=== PATIENT | female | born 1955 | race Caucasian/White ===

== ENCOUNTER → 2022-09-29 | Outpatient (CLI) | payer OTHER, SELFPAY ==
[2022-09-29 16:53] LABS: International Normalized Ratio 1.2; Prothrombin Time (Protime)PT. 15.2 SECONDS (11.7-14.9)
[2022-09-29 16:54] LABS: Absolute Lymphocyte Count 1.15 X10^3/uL (0.83-4.51); Absolute Neutrophil Count 2.7 X10^3/uL (2.0-7.7); Basophil# 0.05 X10^3/uL; Basophil% 1.1 % (0-1); Eosinophil# 0.12 X10^3/uL; Eosinophils% 2.6 % (0-5); Erythrocyte Sedimentation Rate 19 mm/hr (0-30); Hematocrit 40.2 % (37-47); Hemoglobin 13.1 g/dL (12.0-15.0); Lymphocyte # 1.15 X10^3/ul (0.83-4.51); Lymphocyte % 25.4 % (19-41); Mean Corp Hgb Conc 32.6 g/dL (32-36); Mean Corpuscular Hgb 30.8 pg (27.0-32.0); Mean Corpuscular Volume 94.4 fL (81-99); Mean Platelet Vol. 11.7 fl (6.2-12.0); Monocyte# 0.49 X10^3/uL; Monocyte% 10.8 % (0-10); NRBC Flagged by Analyzer 0 % (0-5); Neutrophil # 2.71 X10^3/uL (2.7-7.7); Neutrophil % 59.9 % (47-70); Platelet Count 144 K/mm3 (150-450); RBC Distribution Width CV 13.2 % (11.6-14.6); RBC Distribution Width SD 45.1 fl (35.1-43.9); Red Blood Count 4.26 M/mm3 (4.2-5.4); White Blood Count 4.5 K/mm3 (4.4-11.0)
[2022-09-29 17:32] LABS: ALB/GLOB Ratio 0.8 RATIO (0.9-2.4); AST(SGOT) 37 U/L (15-37); Alanine Aminotransfer ALT/SGPT 15 U/L (13-56); Alkaline Phosphatase 141 U/L (45-117); Anion Gap 6 (5-15); BUN 10 mg/dL (7-18); BUN/Creat Ratio 14.4 RATIO (10-20); CRP 4.42 mg/L (0.0-3.0); Calcium,Total 9.1 mg/dL (8.5-10.1); Chloride 113 mmol/L (98-107); EST Glomerular Filtration Rate 89 mL/min (>60); Est Glom Filt Rate - Afr Amer 108 mL/min (>60); Ferritin 58 ng/mL (8-252); Globulin 3.7 g/dL (2.2-4.2); Glucose 91 mg/dL (74-106); Hemoglobin A1c 4.5 % (3.8-5.6); LDH 246 U/L (84-246); Potassium 3.8 mmol/L (3.5-5.1); Protein, Total 6.7 g/dL (6.4-8.2); Sodium Level 144 mmol/L (136-145)
[2022-09-29 17:51] LABS: HIV - WCH Non-Reactive (Nonreactive)
[2022-10-01 15:08] LABS: Anti-Centromere B Ab >8.0 AI (0.0-0.9); Anti-Chromatin 0.3 AI (0.0-0.9); Anti-Jo <0.2 AI (0.0-0.9); Anti-Scleroderma-70 AB <0.2 AI (0.0-0.9); RNP Ab 0.2 AI (0.0-0.9); SJOGREN'S Anti-SS-A test < 0.2 AI (0.0-0.9); SJOGREN'S Anti-SS-B test < 0.2 AI (0.0-0.9); Smith Ab <0.2 AI (0.0-0.9)
[2022-10-01 16:02] LABS: Anti-Mitochondrial AB 145.2 Units (0.0-20.0); Anti-dsDNA Ab 1 IU/mL (0-9)
[2022-10-04 08:09] LABS: Angiotensin Convert Enzyme 86 U/L (14-82); Cytoplasmic Ab (C-ANCA) <1:20 titer (Neg:<1:20); HEPATITIS B SURFACE AG Negative (Negative); Hep C Antibodies <0.1 s/co ratio (0.0-0.9); Hepatitis A IgM Antibody Negative (Negative); Hepatitis B Core AB IgM Negative (Negative)
[2022-10-04 14:53] LABS: AFP, Tumor Marker 2.3 ng/mL (0.0-9.2); Anti-Smooth Muscle ABS 9 Units (0-19); Copper, Serum or Plasma 121 ug/dL (80-158); Haptoglobin 60 mg/dL (37-355); Perinuclear Ab (P-ANCA) <1:20 titer (Neg:<1:20)
== END | disposition home or self-care (01) ==
LOC: LAB 15:26
PROVIDERS: PCP Family Medicine; Referring Provider Internal Medicine Gastroenterology; Visit Provider Internal Medicine Gastroenterology
DX: K74.3 Primary biliary cirrhosis (principal)
CPT/HCPCS: 36415; 80053; 80074; 82105; 82140; 82164; 82390; 82525; 82728; 83010; 83036; 83516; 83615; 85025; 85610; 85652; 86140; 86225; 86235; 86256; 86703

== ENCOUNTER → 2022-10-15 | Outpatient (CLI) | payer SELFPAY, OTHER ==
--- NOTE | 2022-10-15 09:50 | US_ITS ---
STUDY: ABDOMINAL ULTRASOUND - ELASTOGRAPHY REASON FOR VISIT: Female, 67 years old. Primary biliary cirrhosis. TECHNIQUE: Liver stiffness measurements were obtained on a Mobile Backstage RS 85 ultrasound machine using a CA 1-7 probe following the SRU guidelines. 3 measurements were obtained using a 2-D-SWE method. The IQR/M was 2% suggesting a quality data set. TECHNICAL QUALITY: Adequate. COMPARISON: None. FINDINGS: Liver: There is no demonstrated mass lesion. Median liver stiffness measured 18 kPa. US/Elastography Parenchyma/Organ IMPRESSION: Liver stiffness measures 18 kPa compatible with F3-F4 (Moderate to severe liver fibrosis) Metavir score. Electronically Signed: Eduar Lozada MD at 12:24 EST ,
--- NOTE | 2022-10-15 09:50 | US_ITS ---
STUDY: ABDOMINAL ULTRASOUND - RIGHT UPPER QUADRANT REASON FOR VISIT: Female, 67 years old . History of biliary cirrhosis. History of prior TIPS procedure. TECHNIQUE: Ultrasound evaluation of the right upper quadrant was performed with real-time and static catherine-scale imaging. TECHNICAL QUALITY: Adequate. COMPARISON: None. FINDINGS: Liver: The liver measures 11.7 cm. There is normal echogenicity of the liver. The bile ducts are within normal limits. There is hepatic color flow. The direction of portal flow is hepatopetal. There is no demonstrated mass lesion. Gallbladder: Normal distended gallbladder. The gallbladder wall measures 1.1 mm. There is a negative sonographic Velasquez''s sign. There is no pericholecystic fluid. There are no gallstones. Common Bile Duct (C.B.D.): The common bile duct measures 8.8 mm. Pancreas: There is nonvisualization of the pancreas due to overlying bowel gas. Right Kidney: Normal size of the right kidney. The right kidney measures 10 cm x 5.2 cm x 5 cm. Normal renal cortex. The right cortex measures 1.3 cm. There is no demonstrated renal mass or cyst. Minimal right hydronephrosis. US/Abdomen Limited IMPRESSION: Minimal right hydronephrosis. Electronically Signed: Eduar Lozada MD at 12:22 EST ,
== END | disposition home or self-care (01) ==
LOC: US 09:49
PROVIDERS: PCP Family Medicine; Referring Provider Internal Medicine Gastroenterology; Visit Provider Internal Medicine Gastroenterology
DX: N13.30 Unspecified hydronephrosis (principal); K74.3 Primary biliary cirrhosis
CPT/HCPCS: 76705; 76981

== ENCOUNTER → 2022-10-27 | Outpatient (CLI) | payer OTHER, SELFPAY ==
[2022-10-27] VITALS (10 sets, daily range): BP systolic 110–140; BP diastolic 46–95; PULSE 81–91; RESP 15–29; TEMP 36.4; O2SAT 95–99; BMI 25.8
--- NOTE | 2022-10-27 | LIVB_PTH ---
PATIENT: CARMINE OVERTON LOC: CT U#:[id number] AGE/SX: 67/F ROOM: RE10/27/[address]: Dr. Sánchez Hartman DO : 1955 BED: DIS: 10/27/2022 SPEC #: [id number] RECD: 10/27/22 09:37 STATUS: EMILY REQ #: [id number] ELISEO: 10/27/22 00:[address]: Sánchez Hartman DEPT: SURGICAL PATHOLOGY RECD BY: Kaylin Zafar ENTERED: 10/27/22 11:03 SP TYPE: LIVER BX OTHR DR: DO Dr. Eduar Rice MD Tissues: Liver, NOS Procedures: PAS with Diastase (control) Trichrome (control) Special Stain Group II PAS Stain (control) Surgery Specimen Level V Retic (control) Iron Stain (control) HEADER OPERATION: Liver biopsy PRE-OP DIAGNOSIS: Liver evaluation TISSUE SUBMITTED: Liver 18-gauge x3 MICROSCOPIC DIAGNOSIS Liver, core biopsy: Consistent with primary biliary cirrhosis. See microscopic description and comment. SJ:manny 10/28/2022 COMMENT The findings are suggestive of primary biliary cirrhosis, stage III. Correlation with clinical, radiologic findings, laboratory studies and appropriate follow up are necessary. Case has been reviewed in consultation with Dr. Alcazar who concurs with the above diagnosis. IDC:ROSANA MICROSCOPIC DESCRIPTION Slides are reviewed. The specimen shows liver parenchymal tissue with preserved lobular architecture. Hepatocytes show minimal reactive changes. Minimal lobular inflammation is noted. Portal area shows moderate chronic inflammation predominantly consisting of lymphocytes and lymphoid aggregates with bile duct destruction. Focal interface inflammation is noted. Well-defined granulomas are not seen. Trichrome stain highlights the portal, periportal and focal bridging fibrosis. Definite cirrhosis is not seen. Iron stain shows absent iron. Reticulin stain shows preserved hepatic architecture. PAS and PASD stains do not show any abnormal accumulation of protein. All stains are performed with appropriate matched controls. GROSS DESCRIPTION Received in fixative is one container labeled with the patient's name and designated liver biopsy. The specimen consists of three elongated fragments of islas soft tissue each measuring 2 cm in length and 0.1 cm in diameter. The specimen is totally submitted in one cassette. / TRISH:manny 10/27/2022 TC:5 CPT: 06760, 85858 x5
--- NOTE | 2022-10-27 07:44 | CT_ITS ---
PROCEDURE: CT DIRECTED CORE LIVER BIOPSY INDICATION: Female, 67 years old. Chronic hepatitis C. TIPS procedure. PHYSICIAN: Dr. STEFANI Talbert CONSENT: Written informed consent was obtained having explained the risks, benefits and alternatives in detail with the patient who accepted the risks and agreed to proceed. Laboratory review and clinical assessment was performed. CONSCIOUS SEDATION PROTOCOL: The Drugs used were: 2 mg Versed, IV., and 50 mcg Fentanyl, IV. The sedation time was: 25 minutes. Conscious sedation was started at 9:05 AM and terminated at 9:30 AM. The conscious sedation protocol was independently monitored. RADIATION DOSAGE (If Supplied By Facility): CTDIvol = ( 16 ) mGy, DLP = ( 290.91 ) mGycm Individualized dose optimization techniques were used for this CT. TECHNIQUE: Using CT image guidance with image documentation, a suitable location in the right lobe of the liver was identified. Using an anterior approach, puncture of the liver was uneventful with an 18-gauge core needle system. 3, 18-gauge core samples were obtained, and submitted in formalin to the pathologist for further assessment. Followup CT scan revealed no distinct sequelae. CT/Biopsy/Inj or Needle Placement IMPRESSION: 1. CT directed core needle biopsy of the liver, using CT image guidance with image documentation as described. 2. Conscious Sedation protocol utilized with independent monitoring. Electronically Signed: Eduar Lozada MD at 10:44 EST ,
[2022-10-27 07:54] LABS: Platelet Count 145 K/mm3 (150-450)
[2022-10-27] MEDS: 0.9% Saline Lock 10 ML Syringe IV (08:38)
[2022-10-27 08:41] LABS: International Normalized Ratio 1.3; Prothrombin Time (Protime)PT. 16.2 SECONDS (11.7-14.9)
[2022-10-27] MEDS: Midazolam 2 MG/2 ML Syringe IV (09:05)
[2022-10-27] MEDS: fentaNYL 100 MCG/2 ML Ampul IV (09:05)
[2022-10-27] MEDS: Lidocaine 2% (20 ml mdv) 20 ML Vial (09:25)
== END | disposition home or self-care (01) ==
PROVIDERS: PCP Family Medicine; Referring Provider Internal Medicine Gastroenterology; Visit Provider Internal Medicine Gastroenterology
DX: K74.3 Primary biliary cirrhosis (principal); B19.20 Unspecified viral hepatitis C without hepatic coma
CPT/HCPCS: 47000; 96365; 96375; 36415; 77012; 85049; 85610; 85730; 88307; 88313; 99156; J7050; A4216

== ENCOUNTER 2022-12-01 09:27 | Day surgery (SDC) | payer SELFPAY, OTHER ==
[2022-12-01] MEDS: Lactated Ringers 1,000 ML 15 ML IV (10:01)
[2022-12-01 10:02] VITALS: BP 146/53; PULSE 85; RESP 18; TEMP 36.8; O2SAT 99; BMI 26.9
--- NOTE | 2022-12-01 10:28 | PCM.HP.BLA ---
History and Physical Date of Admission: 12/01/22 67 F who presents to the office today for Initial consult. Chapis established with this clinic 09.29.22 as a self-referral. Previously established with [facility] for hepatic cirrhosis. Approximately 7 years prior she presented to [facility] with generalized weakness and general malaise with subsequent syncopal episode and noted to have of varices and GIB. Transferred to [facility] where TIPs performed emergently. Hepatology Dr. Fish last seen approximately a year prior. Does not recall any HE complications. She has not had a repeat EGD. ROS Const Constitutional: No fatigue, malaise, night sweats, weight change, sleep problems, abnormal sleep pattern or change in appetite ENT ENT: No difficulty swallowing, hoarseness or sore throat Cardio Cardiology: No chest pain at rest Gastro GI: No abdominal pain, belching, bloating, change in bowel habits, change in stool character, coffee ground emesis, constipation, cramping, diarrhea, heartburn, difficulty swallowing, feeling full early, excessive flatus, incontinent of stools, Vomiting blood/hematemesis, Blood in stool, loose stools, Black,tarry stools, nausea/dyspepsia, pain with swallowing, vomiting or other Musc Musculoskeletal: No joint pain Skin Skin: No yellowing of the eye or itchy eyes Neuro Neurology: No behavioral changes Psych Psychiatric: No abnormal sleep pattern, No anxiety, No behavioral changes, No change in appetite and No depression Endo Endocrine: No fatigue or weight change Aller/Imm Allergy/Immunologic: No itchy eyes Joshua/Lymp Hematologic/Lymphatic: No easy bleeding or easy bruising Exam Const General: cooperative and comfortable Nutritional Appearance: average body habitus and well nourished [facility] Head: normal to inspection Ears: hearing grossly normal bilaterally Nose: external nose normal Face and sinus: normal facial exam Mouth: oral mucosae normal Throat: posterior oropharynx normal Eyes General: appearance normal, both eyes and all related structures Neck Neck: normal visual inspection Chest Chest palpation & inspection: normal inspection of the chest and normal palpation of entire chest wall Resp Effort & Inspection: normal respiratory effort Auscultation: Bilateral: Clear to Auscultation Cardio Palpation: normal PMI Rate: regular rate Rhythm: regular rhythm GI Inspection: normal to inspection Auscultation: normal bowel sounds Percussion: normal to percussion Palpation: no hepatosplenomegaly Skin General: no rashes or lesions noted Neuro General: patient alert Extrem General: normal to inspection Psych Affect: normal affect Assessment and Plan Assessment and Plan (1) Primary biliary cirrhosis: ?Status:?Chronic ?Plan: She has a several year history of probable cirrhosis complicated by gastric varices resulting for emergent TIPS procedure.? She is not having signs or symptoms of decompensated cirrhosis at this time.? She will need an upper endoscopy to evaluate for portal gastropathy, portal hypertension, esophageal varices.? I suspect that she did not have these because she underwent a TIPS procedure.? She is therapy at this time for variceal prophylaxis.? She will also get labs drawn for meld testing.? She is not experiencing any jaundice, encephalopathy, ascites.? She does get occasional itching but that is not on a daily basis.? She does not drink any alcohol.? She has no other liver disease except for primary biliary cirrhosis.? She is on ursodiol which we will continue. (2) HCV (hepatitis C virus): ?Status:?Chronic ?Plan: Patient will be checked chronic hepatitis C indicated on her previous documentation previously ? ? ? Orders: Orders HIV - [facility] Today K74.3 - Primary biliary cirrhosis ? Comprehensive Metabolic Profil Today K74.3 - Primary biliary cirrhosis ? CRP Today K74.3 - Primary biliary cirrhosis ? Ferritin Today K74.3 - Primary biliary cirrhosis ? LDH Today K74.3 - Primary biliary cirrhosis ? Hemoglobin A1c Today K74.3 - Primary biliary cirrhosis ? Prothrombin Time w/INR Today K74.3 - Primary biliary cirrhosis ? CBC W/Diff, Automated Today K74.3 - Primary biliary cirrhosis ? Erythrocyte Sed Rate Today K74.3 - Primary biliary cirrhosis ? Anti-Mitochondrial AB Today K74.3 - Primary biliary cirrhosis ? RAFAEL Comprehensive Panel Today K74.3 - Primary biliary cirrhosis ? Hepatitis Panel Acute Today K74.3 - Primary biliary cirrhosis ? Angiotensin Convert Enzyme Today K74.3 - Primary biliary cirrhosis ? AFP, Tumor Marker Today K74.3 - Primary biliary cirrhosis ? ANCA Today K74.3 - Primary biliary cirrhosis ? Anti-Smooth Muscle ABS Today K74.3 - Primary biliary cirrhosis ? Ceruloplasmin Today K74.3 - Primary biliary cirrhosis ? Copper, Serum or Plasma Today K74.3 - Primary biliary cirrhosis ? Haptoglobin Today K74.3 - Primary biliary cirrhosis ? Ammonia Today K74.3 - Primary biliary cirrhosis ? Abdomen Limited Today K74.3 - Primary biliary cirrhosis ? Elastography Parenchyma/Organ Today K74.3 - Primary biliary cirrhosis ? I have examined the patient and the H&P has been reviewed. There are no clinical changes since date of exam.
--- NOTE | 2022-12-01 10:45 | EGD_PTH ---
PATIENT: CARMINE OVERTON LOC: EN U#:[id number] AGE/SX: 67/F ROOM: RE12/01/[address]: Dr. Sánchez Hartman DO : 1955 BED: DIS: 12/01/2022 SPEC #: [id number] RECD: 12/01/22 13:21 STATUS: EMILY REArtemio #: [id number] ELISEO: 12/01/22 10:[address]: Sánchez Hartman DEPT: SURGICAL PATHOLOGY RECD BY: Kaylin Zafar ENTERED: 12/01/22 13:35 SP TYPE: EGD BIOPSY OT DR: Dr. Frederic Remy DO Tissues: Esophagus, NOS Procedures: Special Stain Group II Surgery Specimen Level IV Alcian Blue/PAS (control) HEADER OPERATION: EGD ([facility]), biopsy PRE-OP DIAGNOSIS: Primary biliary cirrhosis TISSUE SUBMITTED: Distal esophagus biopsy MICROSCOPIC DIAGNOSIS Distal esophagus, biopsy: Fragments of gastric mucosa with chronic inflammation. Intestinal metaplasia (goblet cell metaplasia) not identified. See comment. TRISH:manny 12/02/2022 COMMENT Alcian blue/PAS stain with matched control is used in the evaluation of the specimen. MICROSCOPIC DESCRIPTION Slides are reviewed. GROSS DESCRIPTION Received in fixative is one container labeled with the patient's name and designated distal esophagus. The specimen consists of two irregular fragments of light islas soft tissue that in aggregate measure 0.6 x 0.3 x 0.1 cm. The specimen is totally submitted in one cassette. / TRISH:manny 12/01/2022 TC:3 CPT: 97733, 42405
[2022-12-01 11:25] VITALS: BP 143/91; BP 146/53; PULSE 88; RESP 16; TEMP 36.9; O2SAT 96
--- NOTE | 2022-12-01 11:29 | OP.CCLET_ITS ---
12/01/2022 Frederic Remy Re : Upper GI endoscopy procedure for Chapis James Dear Jonel This procedure was performed on Thursday, December 01, 2022. My impressions and recommendations are as follows: Impressions : - Moderate Schatzki ring. Dilated. - Z-line irregular, 39 cm from the incisors. Biopsied. - Small hiatal hernia. - Normal second portion of the duodenum. Recommendations : - Discharge patient to home. - Resume previous diet. - Continue present medications. - Await pathology results. My findings are described in the full procedure note, which is enclosed. If I can be of further assistance, please feel free to contact me at . Sincerely, Sánchez Hartman, 12/01/2022 11:28:48 AM This report has been signed electronically.
--- NOTE | 2022-12-01 11:29 | OP.EGD_ITS ---
Patient Name: Chapis James Procedure Date: 12/01/2022 11:06 AM Date of : 1955 Age: 67 Procedure: Upper GI endoscopy Indications: Dysphagia, Follow-up of esophageal varices Providers: Sánchez Hartman DO Referring MD: Frederic Remy Medicines: Monitored Anesthesia Care Patient Profile: This is a 67 year old female. Refer to note in patient chart for documentation of history and physical. Patient has symptoms of chronic dysphagia. Complications: No immediate complications. Procedure: Pre-Anesthesia Assessment: - Prior to the procedure, a History and Physical was performed, and patient medications and allergies were reviewed. The risks and benefits of the procedure and the sedation options and risks were discussed with the patient. All questions were answered and informed consent was obtained. Patient identification and proposed procedure were verified by the physician in the pre-procedure area. Mental Status Examination: alert and oriented. Airway Examination: normal oropharyngeal airway and neck mobility. Respiratory Examination: clear to auscultation. CV Examination: normal. Prophylactic Antibiotics: The patient does not require prophylactic antibiotics. Prior Anticoagulants: The patient has taken no previous anticoagulant or antiplatelet agents. After reviewing the risks and benefits, the patient was deemed in satisfactory condition to undergo the procedure. The anesthesia plan was to use monitored anesthesia care (MAC). Immediately prior to administration of medications, the patient was re-assessed for adequacy to receive sedatives. The heart rate, respiratory rate, oxygen saturations, blood pressure, adequacy of pulmonary ventilation, and response to care were monitored throughout the procedure. The physical status of the patient was re-assessed after the procedure. After obtaining informed consent, the endoscope was passed under direct vision. Throughout the procedure, the patient's blood pressure, pulse, and oxygen saturations were monitored continuously. The gastroscope was introduced through the mouth, and advanced to the second part of duodenum. The patient tolerated the procedure well. Scope In: 11:18:36 AM Scope Out: 11:22:20 AM Total Procedure Duration Time 0 hours 3 minutes 44 seconds Findings: A moderate Schatzki ring was found at the gastroesophageal junction. A guidewire was placed and the scope was withdrawn. Dilation was performed with a Savary dilator with no resistance at 45 Fr. The dilation site was examined and showed moderate improvement in luminal narrowing. Estimated blood loss was minimal. The Z-line was irregular and was found 39 cm from the incisors. Biopsies were taken with a cold forceps for histology. Verification of patient identification for the specimen was done. Estimated blood loss was minimal. A small hiatal hernia was present. The exam of the stomach was otherwise normal. The second portion of the duodenum was normal. Impression: - Moderate Schatzki ring. Dilated. - Z-line irregular, 39 cm from the incisors. Biopsied. - Small hiatal hernia. - Normal second portion of the duodenum. Recommendation: - Discharge patient to home. - Resume previous diet. - Continue present medications. - Await pathology results. Procedure Code(s): --- Professional --- 75204, Esophagogastroduodenoscopy, flexible, transoral; with insertion of guide wire followed by passage of dilator(s) through esophagus over guide wire 71525, 59,51, Esophagogastroduodenoscopy, flexible, transoral; with biopsy, single or multiple CPT copyright 2017 [employer]. All rights reserved. The codes documented in this report are preliminary and upon bottom painter review may be revised to meet current compliance requirements. Sánchez Hartman DO 12/01/2022 11:28:48 AM This report has been signed electronically. Number of Addenda: 0 Note Initiated On: 12/01/2022 11:06 AM
[2022-12-01 11:30] VITALS: BP 141/62; BP 146/53; PULSE 92; RESP 16; O2SAT 96
[2022-12-01 11:35] VITALS: BP 144/59; BP 146/53; PULSE 88; RESP 16; O2SAT 97
[2022-12-01 11:40] VITALS: BP 142/57; BP 146/53; PULSE 90; RESP 16; TEMP 36.8; O2SAT 96
[2022-12-01 11:59] VITALS: BP 146/53
== END 2022-12-01 12:18 | disposition home or self-care (01) ==
LOC: EN 09:31 → AC 09:33
PROVIDERS: PCP Family Medicine; Referring Provider Family Medicine; Visit Provider Internal Medicine Gastroenterology
PROC: 0DJ08ZZ Inspection of Upper Intestinal Tract, Via Natural or Artificial Opening Endoscopic (ICD-10-PCS; CPT 43235; principal; 2022-12-01 10:40)
DX: K44.9 Diaphragmatic hernia without obstruction or gangrene (principal); I85.00 Esophageal varices without bleeding; K74.3 Primary biliary cirrhosis; B19.20 Unspecified viral hepatitis C without hepatic coma; R13.10 Dysphagia, unspecified
CPT/HCPCS: 43248; 43239; 88305; 88313; J7120; J2405

== ENCOUNTER → 2023-04-29 | Outpatient (CLI) | payer OTHER, SELFPAY ==
--- NOTE | 2023-04-29 10:10 | RAD_ITS ---
STUDY: X-RAY - RIGHT HAND REASON FOR EXAM: Female, 67 years old. Pain and swelling following a fall. TECHNIQUE: 3 view(s) of the hand. COMPARISON: None. FINDINGS: Normal radiocarpal articulation. Normal distal radioulnar joint. Normal visualized carpal bones. Normal carpal articulations Normal carpometacarpal articulation of the thumb. Normal second through fifth carpometacarpal joints. Normal metacarpi. Normal metacarpophalangeal joint of the thumb. Normal interphalangeal joint of the thumb. Normal proximal and distal phalanges of the thumb. Normal metacarpophalangeal joints of the second through fifth fingers. Normal proximal and distal interphalangeal joints of the second through fifth fingers. Nondisplaced oblique fracture at the base of the proximal phalanx of the fifth finger. Soft tissue swelling. RAD/Hand 2 Views IMPRESSION: Nondisplaced oblique fracture at the base of the proximal phalanx of the fifth digit with overlying soft tissue swelling. Electronically Signed: Eduar Lozada MD at 13:31 EDT ,
[2023-04-29 10:55] LABS: Erythrocyte Sedimentation Rate 13 mm/hr (0-30)
[2023-04-29 10:57] LABS: Absolute Lymphocyte Count 1.97 X10^3/uL (0.83-4.51); Absolute Neutrophil Count 2.7 X10^3/uL (2.0-7.7); Basophil# 0.04 X10^3/uL; Basophil% 0.7 % (0-1); Eosinophil# 0.17 X10^3/uL; Eosinophils% 3.1 % (0-5); Hematocrit 40.9 % (37-47); Hemoglobin 13.7 g/dL (12.0-15.0); Lymphocyte # 1.97 X10^3/ul (0.83-4.51); Lymphocyte % 35.6 % (19-41); Mean Corp Hgb Conc 33.5 g/dL (32-36); Mean Corpuscular Volume 92.5 fL (81-99); Mean Platelet Vol. 11.4 fl (6.2-12.0); Monocyte# 0.69 X10^3/uL; Monocyte% 12.5 % (0-10); NRBC Flagged by Analyzer 0 % (0-5); Neutrophil # 2.65 X10^3/uL (2.7-7.7); Neutrophil % 47.9 % (47-70); Platelet Count 147 K/mm3 (150-450); RBC Distribution Width CV 12.9 % (11.6-14.6); RBC Distribution Width SD 44.1 fl (35.1-43.9); Red Blood Count 4.42 M/mm3 (4.2-5.4); White Blood Count 5.5 K/mm3 (4.4-11.0)
[2023-04-29 11:22] LABS: CRP 4.49 mg/L (0.0-3.0); LDH 286 U/L (84-246)
[2023-04-30 14:09] LABS: AFP, Tumor Marker 2.2 ng/mL (0.0-9.2); Cytoplasmic Ab (C-ANCA) <1:20 titer (Neg:<1:20); Perinuclear Ab (P-ANCA) <1:20 titer (Neg:<1:20)
[2023-04-30 15:08] LABS: Anti-Mitochondrial AB 148.8 Units (0.0-20.0)
== END | disposition home or self-care (01) ==
PROVIDERS: PCP Family Medicine; Referring Provider Internal Medicine Gastroenterology; Visit Provider Internal Medicine Gastroenterology
DX: S62.646A Nondisplaced fracture of proximal phalanx of right little finger, initial encounter for closed fracture (principal); K74.3 Primary biliary cirrhosis; B19.20 Unspecified viral hepatitis C without hepatic coma
CPT/HCPCS: 36415; 73120; 82105; 83516; 83615; 85025; 85652; 86140; 86256

== ENCOUNTER → 2023-05-20 | Outpatient (CLI) | payer SELFPAY, OTHER ==
--- NOTE | 2023-05-20 08:33 | BD_ITS ---
STUDY: DUAL ENERGY X-RAY ABSORPTIOMETRY / DXA REASON FOR EXAM: Female, 67 years old. Osteoporosis TECHNIQUE: Bone Mineral Density (BMD) measurements of lumbar spine and bilateral hips were obtained. COMPARISON: None. FINDINGS: Lumbar Spine (L1-L4): g/cm2 (0.819) / T-score (-2.1) / Z-score (-0.1) Findings are suggestive of osteopenia with a high fracture risk. Left Femur Total: g/cm2 (0.710) / T-score (-1.9) / Z-score (-0.5) Left Femoral Neck: g/cm2 (0.542) / T-score (-2.8) / Z-score (-1.0) Right Femur Total: g/cm2 (0.632) / T-score (-2.5) / Z-score (-1.1) Right Femoral Neck: g/cm2 (0.528) / T-score (-2.9) / Z-score (-1.2) BD/Dexa Bone Density Study IMPRESSION: The patient is considered osteoporotic as outlined below according to World [employer] Organization (WHO) criteria with a high fracture risk. Reference Information: The T-score is the number of standard deviations above or below the standard which is normal for young adults at their peak bone mineral density. The World Health Organization (WHO) interprets the T-scores as follows: Above -1 Normal bone density Between -1 and -2.5 Osteopenia Equal to / or below -2.5 Osteoporosis As a practical clinical guideline, osteopenia may be graded as follows: Mild -1 through -1.5 Moderate -1.6 through -2.0 Severe -2.1 through -2.4 The Z-score is the number of standard deviations above or below age-matched controls. A Z-score of less than -1.5 would be considered abnormal. References: 1. NIH Osteoporosis and Related Bone Diseases www osteo.org 2. International Society for Clinical Densitometry www iscd.org 3. National Osteoporosis Foundation www nof.org Electronically Signed: Eduar Lozada MD at 13:31 EDT ,
== END | disposition home or self-care (01) ==
LOC: OPBD 08:15
PROVIDERS: PCP Family Medicine; Referring Provider Internal Medicine Gastroenterology; Visit Provider Internal Medicine Gastroenterology
DX: B19.20 Unspecified viral hepatitis C without hepatic coma (principal); K74.3 Primary biliary cirrhosis; M81.0 Age-related osteoporosis without current pathological fracture
CPT/HCPCS: 77080

== ENCOUNTER → 2023-10-23 | Outpatient (CLI) | payer OTHER, SELFPAY ==
[2023-10-23 09:13] LABS: Absolute Lymphocyte Count 1.27 X10^3/uL (0.83-4.51); Absolute Neutrophil Count 2.1 X10^3/uL (2.0-7.7); Basophil# 0.04 X10^3/uL; Eosinophil# 0.17 X10^3/uL; Eosinophils% 4.1 % (0-5); Hematocrit 40.9 % (37-47); Hemoglobin 13.1 g/dL (12.0-15.0); Lymphocyte # 1.27 X10^3/ul (0.83-4.51); Lymphocyte % 30.5 % (19-41); Mean Corpuscular Hgb 30.4 pg (27.0-32.0); Mean Corpuscular Volume 94.9 fL (81-99); Mean Platelet Vol. 10.7 fl (6.2-12.0); Monocyte# 0.55 X10^3/uL; Monocyte% 13.2 % (0-10); NRBC Flagged by Analyzer 0 % (0-5); Neutrophil # 2.12 X10^3/uL (2.7-7.7); Platelet Count 169 K/mm3 (150-450); RBC Distribution Width CV 13.3 % (11.6-14.6); RBC Distribution Width SD 47.4 fl (35.1-43.9); Red Blood Count 4.31 M/mm3 (4.2-5.4); White Blood Count 4.2 K/mm3 (4.4-11.0)
[2023-10-23 09:27] LABS: International Normalized Ratio 1.3; Prothrombin Time (Protime)PT. 15.7 SECONDS (11.7-14.9)
[2023-10-23 09:49] LABS: Vitamin D,25 Hydroxy 94.3 ng/mL
[2023-10-23 09:51] LABS: ALB/GLOB Ratio 0.8 RATIO (0.9-2.4); AST(SGOT) 35 U/L (15-37); Alanine Aminotransfer ALT/SGPT 12 U/L (13-56); Albumin, Serum 2.8 g/dL (3.2-5.0); Alkaline Phosphatase 160 U/L (45-117); Anion Gap 3 (5-15); BUN 7 mg/dL (7-18); BUN/Creat Ratio 12.8 RATIO (10-20); Calcium,Total 9.3 mg/dL (8.5-10.1); Chloride 115 mmol/L (98-107); Cholesterol 176 mg/dL (200); Creatinine, Serum 0.55 mg/dL (0.55-1.02); EST Glomerular Filtration Rate 117 mL/min (>60); Est Glom Filt Rate - Afr Amer 142 mL/min (>60); Globulin 3.7 g/dL (2.2-4.2); Glucose 97 mg/dL (74-106); High Density Lipoprotein 72 mg/dL; Potassium 3.6 mmol/L (3.5-5.1); Protein, Total 6.5 g/dL (6.4-8.2); Sodium Level 144 mmol/L (136-145); Triglycerides 48 mg/dL; Very Low Density Lipoprotein 10 mg/dL (5-40)
[2023-10-23 09:52] LABS: Hemoglobin A1c 4.9 % (3.8-5.6)
[2023-10-25 13:07] LABS: AFP, Tumor Marker 2.4 ng/mL (0.0-9.2); HCV Quant. RNA PCR HCV Not Detected IU/mL (.)
[2023-10-26 14:08] LABS: ANTINUCLEAR ANTIBODIES DIRECT Positive (Negative); Anti-Centromere B Ab >8.0 AI (0.0-0.9); Anti-Chromatin 0.2 AI (0.0-0.9); Anti-Jo <0.2 AI (0.0-0.9); Anti-Mitochondrial AB 124.4 Units (0.0-20.0); Anti-Scleroderma-70 AB <0.2 AI (0.0-0.9); Anti-dsDNA Ab 1 IU/mL (0-9); RNP Ab 0.3 AI (0.0-0.9); SJOGREN'S Anti-SS-A test < 0.2 AI (0.0-0.9); SJOGREN'S Anti-SS-B test < 0.2 AI (0.0-0.9); Smith Ab <0.2 AI (0.0-0.9)
== END | disposition home or self-care (01) ==
PROVIDERS: PCP Family Medicine; Referring Provider Internal Medicine; Visit Provider Internal Medicine
DX: K74.3 Primary biliary cirrhosis (principal); B19.20 Unspecified viral hepatitis C without hepatic coma
CPT/HCPCS: 36415; 80053; 80061; 82105; 82306; 83036; 83516; 85025; 85610; 86038; 86225; 86235; 87522

== ENCOUNTER → 2023-11-27 | Outpatient (CLI) | payer SELFPAY, OTHER ==
--- NOTE | 2023-11-27 07:09 | CT_ITS ---
HISTORY: Cirrhosis, HCC screening -- Triple phase, R/O HCC. TECHNIQUE: Helically acquired images were obtained of the abdomen before and after the intravenous administration of 100 mL Isovue-370. A radiation dose optimization technique was used for this scan. 417 images. COMPARISON: US 10/15/2022. FINDINGS: LOWER CHEST: Left mastectomy. Lung bases clear. BOWEL: Bowel nondilated. Moderate stool in the colon. PERITONEUM: No significant ascites. Small upper abdominal lymph nodes without pathologic enlargement. LIVER: Nodular and heterogeneous. 9 mm hypoenhancing lesion in the dome adjacent to the inferior vena cava. GALLBLADDER AND BILIARY TREE: Gallbladder present. SPLEEN/PANCREAS/ADRENAL GLANDS: Homogeneous and nonenlarged. KIDNEYS: No nephrolithiasis or hydronephrosis. Subcentimeter left renal cysts. VESSELS: Varices noted. Patent TIPS. Mild atherosclerosis. No abdominal aortic aneurysm or dissection. ABDOMINAL WALL: Tiny fat-containing umbilical hernia. Subcutaneous calcification posterior to the left pelvis. BONES: Degenerative change of the lumbar spine with mild dextrocurvature. Mild chronic anterior wedging of L1. Chronic sclerosis of the sacrum, possible old insufficiency fractures. CT/Abdomen W/WO IV Contrast IMPRESSION: Cirrhotic liver with indeterminate 9 mm hypoenhancing lesion in the dome. Recommend follow-up or multiphasic MRI. Patent TIPS. Varices. No significant ascites. Electronically Signed: Pat Potts MD at 12:40 EST ,
--- NOTE | 2023-11-27 07:09 | ECHOD_ITS ---
Reason For Study: MURMUR Procedure This was a 2D Doppler, Color Flow transthoracic echocardiogram. Myocardial strain analysis was performed in this exam to aid in the assessment of cardiac function. Exam performed in department. Left Ventricle Normal LV size. The estimated ejection fraction is 65 %. No evidence for diastolic dysfunction. No regional wall motion abnormalities noted. Right Ventricle Normal RV size. Normal systolic function. Atria Normal left atrium. Normal right atrium. No doppler evidence for ASD. Mitral Valve There is no mitral valve stenosis. Trivial mitral valve insufficiency. Tricuspid Valve There is no tricuspid stenosis. Trivial tricuspid valve insufficiency. Aortic Valve Trisinus/trileaflet aortic valve. There is no aortic stenosis. No aortic valve insufficiency. Pulmonic Valve There is no pulmonic valvular stenosis. Trivial pulmonic valve insufficiency. Great Vessels Normal aortic root. Pericardium/Pleural No pericardial effusion. MMode/2D Measurements & Calculations LVIDd: 4.9 cm IVSd: 1.1 cm Ao root diam: 3.0 cm LVIDs: 3.2 cm LVPWd: 1.0 cm RVDd: 3.9 cm FS: 34.1 % LAV(MOD-bp): 53.8 ml LVAd ap4: 29.7 cm2 SV(MOD-sp4): 60.3 ml LAV(MOD-bp) Indexed: 30.1 ml/m2 LVLd ap4: 7.7 cm LAV(MOD-sp2): 52.9 ml EDV(MOD-sp4): 94.4 ml LAV(MOD-sp4): 54.7 ml EDV(sp4-el): 96.9 ml LVAs ap4: 16.7 cm2 LVLs ap4: 6.9 cm ESV(MOD-sp4): 34.1 ml ESV(sp4-el): 34.6 ml EF(MOD-sp4): 63.9 % EF(sp4-el): 64.3 % SV(sp4-el): 62.2 ml LA A4 area: 19.1 cm2 LA dimension(2D): 3.6 cm RA A4 area: 15.7 cm2 TAPSE: 2.8 cm Time Measurements MV dec time: 0.18 sec Doppler Measurements & Calculations MV E max dontae: 114.8 cm/sec Lat Peak E' Dontae: 11.3 cm/sec Med Peak E' Dontae: 9.9 cm/sec MV A max dontae: 112.7 cm/sec E/E' lat: 10.2 E/E' med: 11.6 MV E/A: 1.0 Ao V2 max: 164.8 cm/sec LV V1 max: 143.3 cm/sec PA V2 max: 147.7 cm/sec Ao max P.9 mmHg LV V1 max P.2 mmHg TR max dontae: 261.3 cm/sec TR max P.3 mmHg ECHO/Echo Complete Interpretation Summary The estimated ejection fraction is 65 %. No evidence for diastolic dysfunction. Trivial mitral valve insufficiency. Ordering Physician: Deejay Cordova Referring Physician: AZAEL RONDON Performed By: Bettina Beltrán RDCS
--- OUTSIDE RECORDS SUMMARY | 2023-11-27 07:10 | XMS RPT_ITS | CCD ---
Author Name Unknown Address [address] [place] [address] Organization [facility] Care Team Providers Care Military Technician Name Role Phone ROBB PELAYO DR Admitting Unavailable ROBB PELAYO DR Attending Unavailable ROBB PELAYO DR Primary Care Unavailable AZAEL RONDON MD Consulting Unavailable PROVIDER, UNKNOWN Consulting Unavailable Results Test Name Value Interpretation Reference Range Facil ity Encounters Encounter Date Encounter Type Care Provider Facility Start: 03-02-2019 End: 03-02-2019 Patient encounter procedure ROBB PELAYO [facility] Payers Date Payer Category Payer Unknown [id number] Unknown Summary Purpose Family History No Family History Records Found Advance Directives No Advanced Directives Records Found Additional Source Comments INFORMATION SOURCE (unrecogn ized section and content) FOR RECORDS PERTAINING TO PATIENTS WHO ARE OR HAVE BEEN ENROLLED IN A CHEMICAL DEPENDENCY/SUBSTANCEABUSE PROGRAM, SOME INFORMATION MAY BE OMITTED. This clinical summary was aggregated from multiple sources. Caution should be exercised in using it in the provision of clinical care. This summary normalizes information from multiple sources, and as a consequence, information in this document may materially change the coding, format and clinical context of patient data. In addition, data may be omitted in some cases. CLINICAL DECISIONS SHOULD BE BASED ON THE PRIMARY CLINICAL RECORDS. [facility]. provides no warranty or guarantee of the accuracy or completeness of information in this document.
[2023-11-27 07:43] LABS: CREATININE FINGERSTICK < 1.0 mg/dL (0.55-1.02); EGFR FINGERSTICK > 60.0000 mL/min (>60)
== END | disposition home or self-care (01) ==
LOC: CVS 07:08
PROVIDERS: PCP Family Medicine; Referring Provider Internal Medicine; Visit Provider Internal Medicine
DX: K74.3 Primary biliary cirrhosis (principal); B19.20 Unspecified viral hepatitis C without hepatic coma; R01.1 Cardiac murmur, unspecified
CPT/HCPCS: 74170; 93306; Q9967

== ENCOUNTER → 2024-04-08 | Outpatient (CLI) | payer OTHER, SELFPAY ==
[2024-04-08 15:48] LABS: Absolute Lymphocyte Count 1.48 X10^3/uL (0.83-4.51); Absolute Neutrophil Count 2.4 X10^3/uL (2.0-7.7); Basophil# 0.05 X10^3/uL; Basophil% 1.1 % (0-1); Eosinophil# 0.06 X10^3/uL; Eosinophils% 1.4 % (0-5); Hematocrit 38.8 % (37-47); Hemoglobin 12.6 g/dL (12.0-15.0); Lymphocyte # 1.48 X10^3/ul (0.83-4.51); Lymphocyte % 33.3 % (19-41); Mean Corp Hgb Conc 32.5 g/dL (32-36); Mean Corpuscular Hgb 29.6 pg (27.0-32.0); Mean Corpuscular Volume 91.3 fL (81-99); Mean Platelet Vol. 11.2 fl (6.2-12.0); Monocyte# 0.49 X10^3/uL; NRBC Flagged by Analyzer 0 % (0-5); Neutrophil # 2.35 X10^3/uL (2.7-7.7); Platelet Count 185 K/mm3 (150-450); RBC Distribution Width CV 13.8 % (11.6-14.6); RBC Distribution Width SD 46.5 fl (35.1-43.9); Red Blood Count 4.25 M/mm3 (4.2-5.4); White Blood Count 4.4 K/mm3 (4.4-11.0)
[2024-04-08 15:59] LABS: International Normalized Ratio 1.1; Prothrombin Time (Protime)PT. 14.4 SECONDS (11.7-14.9)
[2024-04-08 16:12] LABS: ALB/GLOB Ratio 0.7 RATIO (0.9-2.4); AST(SGOT) 64 U/L (15-37); Alanine Aminotransfer ALT/SGPT 19 U/L (13-56); Alkaline Phosphatase 158 U/L (45-117); Anion Gap 7 (5-15); BUN 7 mg/dL (7-18); BUN/Creat Ratio 8.5 RATIO (10-20); Calcium,Total 9.6 mg/dL (8.5-10.1); Chloride 107 mmol/L (98-107); Creatinine, Serum 0.83 mg/dL (0.55-1.02); EST Glomerular Filtration Rate 73 mL/min (>60); Est Glom Filt Rate - Afr Amer 88 mL/min (>60); Globulin 4.2 g/dL (2.2-4.2); Glucose 88 mg/dL (74-106); Potassium 3.8 mmol/L (3.5-5.1); Protein, Total 7.2 g/dL (6.4-8.2); Sodium Level 141 mmol/L (136-145)
[2024-04-11 12:08] LABS: AFP, Tumor Marker 2.1 ng/mL (0.0-9.2); Anti-Smooth Muscle ABS 10 Units (0-19)
[2024-04-11 15:08] LABS: Anti-Centromere B Ab >8.0 AI (0.0-0.9); Anti-Chromatin 0.2 AI (0.0-0.9); Anti-Jo <0.2 AI (0.0-0.9); Anti-Mitochondrial AB 154.8 Units (0.0-20.0); Anti-Scleroderma-70 AB <0.2 AI (0.0-0.9); Anti-dsDNA Ab <1 IU/mL (0-9); RNP Ab 0.3 AI (0.0-0.9); SJOGREN'S Anti-SS-A test < 0.2 AI (0.0-0.9); SJOGREN'S Anti-SS-B test < 0.2 AI (0.0-0.9); Smith Ab <0.2 AI (0.0-0.9)
== END | disposition home or self-care (01) ==
PROVIDERS: PCP Family Medicine; Referring Provider Internal Medicine; Visit Provider Internal Medicine
DX: K74.3 Primary biliary cirrhosis (principal); B19.20 Unspecified viral hepatitis C without hepatic coma
CPT/HCPCS: 36415; 80053; 82105; 83516; 85025; 85610; 86225; 86235

== ENCOUNTER → 2024-07-29 | Outpatient (CLI) | payer SELFPAY, OTHER ==
[2024-07-29 08:33] LABS: CREATININE FINGERSTICK < 1.0 mg/dL (0.55-1.02); EGFR FINGERSTICK > 60.0000 mL/min (>60)
== END | disposition home or self-care (01) ==
LOC: MRI 07:52
PROVIDERS: PCP Family Medicine; Referring Provider Internal Medicine; Visit Provider Internal Medicine
DX: B19.20 Unspecified viral hepatitis C without hepatic coma (principal); K74.3 Primary biliary cirrhosis
CPT/HCPCS: 74183; A9575; A4216

== ENCOUNTER 2024-08-24 09:12 | Day surgery (SDC) | payer SELFPAY, OTHER ==
[2024-08-24] VITALS (7 sets, daily range): BP systolic 105–155; BP diastolic 50–60; PULSE 76–81; RESP 16–18; TEMP 36.3–36.7; O2SAT 95–100; BMI 26.4
--- NOTE | 2024-08-24 09:50 | HP.PCM_ITS ---
History and Physical Date of Admission: 08/24/24 Chief Complaint: PBC Details: CARMINE OVERTON, is a 68 F who presents to the office today for follow up. *[facility] established 1.06.13 as a self-referral. Previously established with [facility] for hepatic cirrhosis. Approximately 7 years prior she presented to [facility] with generalized weakness and general malaise with subsequent syncopal episode and noted to have of varices and GIB. Transferred to [facility] where TIPs performed emergently. Hepatology Dr. Fish last seen approximately a year prior. Does not recall any HE complications. She has not had a repeat EGD. Biochemical workup CBC, ESR, CMP, LDH, ferritin, A1c, coagulation, ASM, HIV, hepatitis, AFP, ANCA, ceruloplasmin, copper, haptoglobin without pertinent abnormality. Centromere B AB >8.0; AMA H145.2; TRINI H86; CRP H4.42, Ammonia H36 US and elastography 1.25. hepatic measurement 11.7cm with normal echogenicity hepatic stiffness measures 18kPa. Liver Biopsy 2.03.13 finding suggestive of PBC Stage III with preserved lobular architecture, minimal inflammation, no granulomas; definite hepatic cirrhosis is not seen; portal areas show chronic inflammation of lymphocytes and lymphoid aggregate with bile duct destruction; focal interface inflammation EGD 3.. Moderate Schatzki ring, Savary dilator 45F; small hiatal hernia. OV 3.30.23 denies difficulty with confusion, brain fog, itching, jaundice, balance. Does not have any particular concerns. OV 8.9.23 feels she is doing well. She fell while feeding her dogs and tripped over something, hurt her hand (edema and bruising) but has not seen anyone for this, no restrictive movement/significant pain. Denies difficulty with confusion, brain fog, itching, jaundice, balance. OV 5.8.24- Patient well since last visit. Denies any abdominal pain, dizziness, confusion. Continues with Ursodiol and Lactulose OV 7.19.24- Pt reports no changes since last visit. Continues medications as prescribed. No GI concerns. ROS Const Constitutional: Positive for fatigue and fever(s); No weight change ENT ENT: No difficulty swallowing Resp Respiratory: No shortness of breath or wheezing Cardio Cardiology: No chest pain at rest or dyspnea on exertion Gastro GI: Positive for abdominal pain, bloating and excessive flatus; No belching, change in bowel habits, change in stool character, coffee ground emesis, constipation, cramping, diarrhea, heartburn, difficulty swallowing, feeling full early, incontinent of stools, Vomiting blood/hematemesis, Blood in stool, loose stools, Black,tarry stools, nausea/dyspepsia, pain with swallowing, vomiting or other Genitourinary-Female: No difficulty urinating or burning urination Musc Musculoskeletal: Positive for abnormal gait; No joint pain Skin Skin: No yellowing of the eye or itchy eyes Neuro Neurology: Positive for abnormal gait Psych Psychiatric: No anxiety and No depression Endo Endocrine: Positive for fatigue; No weight change Aller/Imm Allergy/Immunologic: No itchy eyes or wheezing Joshua/Lymp Hematologic/Lymphatic: No easy bleeding or easy bruising Exam Const General: cooperative, no acute distress and well developed Nutritional Appearance: average body habitus Orientation: alert, awake and oriented x3 HENMT Head: normocephalic and atraumatic Nose: external nose normal Face and sinus: normal facial exam Mouth: moist mucous membranes Eyes Pupils: PERRL EOM: EOM intact bilaterally Neck Neck: normal visual inspection, no meningeal signs and trachea midline Carotids: no bruits Chest Chest palpation & inspection: normal inspection of the chest Resp Effort & Inspection: normal respiratory effort and symmetric chest movement Auscultation: Bilateral: Clear to Auscultation Cardio Palpation: normal PMI Rate: regular rate Rhythm: regular rhythm Heart Sounds: S1 normal and S2 normal Other: Systolic murmur over LLSB and right second ICS, and cardiac apex. GI Auscultation: normal bowel sounds Percussion: normal to percussion Palpation: soft, no hepatosplenomegaly and no guarding Other: No tenderness guarding or rigidity. No clinically palpable ascites. Status post TIPS. General: bimanual renal exam normal bilaterally, bladder normal to inspection and bladder normal to palpation Bimanual Exam- Vagina & Uterus: bladder normal to palpation Musc Musculoskeletal: No joint tenderness, joint redness, joint warmth or decreased range of motion Thoracic/Lumbar Spine: thor and lumb spine abnorm to inspection Skin General: rashes and/or lesions noted, turgor normal and no erythema Wounds: wound noted Other: Dilated varicose vein predominantly left lower leg. Neuro General: patient alert, patient awake, patient oriented x3 and no focal motor deficits Speech: speech normal Motor: muscle tone normal throughout Extrem General: normal exam except as noted Other: No edema. Psych Appearance: grossly normal Mood: congruent mood Affect: normal affect Attitude: cooperative Assessment and Plan Assessment and Plan (1) Primary biliary cirrhosis: Status: Chronic Plan: The patient had a history of cirrhosis probably due to hepatitis C/PBC. She had TIPS in 2014 in [facility] probably she was admitted for upper GI bleed. After the trip she did not had a GI bleed. No ascites. She does not have significant symptoms of encephalopathy and doing well on lactulose. Liver biopsy from October 2022 showed consistent with PBC, stage III. Portal area shows moderate chronic inflammation predominantly consisting of lymphocytes and lymphoid aggregates with bile duct destruction. Labs ordered for 04/08/2024. Patient has elevated alkaline phosphatase, positive RAFAEL screen and antimitochondrial antibody 124 better than 148.. AMA is better. HCV not detected. Vitamin D 25-hydroxy normal. aFP negative. A1c 4.9 in October 2023 MELD Na scor is 7 as per 04/08/2024.child score a. AST 64, ALT normal. Alkaline phosphatase 158 similar to previous lab. Total bilirubin 0.[address] abdomen pelvis triple phase November 2023 reviewed with the patient. Shows 9 mm hypoenhancing lesion in the dome adjacent to IVC. Patent TIPS. Varices. No significant ascites. Patient had EGD in November 2022 Impressions : - Moderate Schatzki ring. Dilated. - Z-line irregular, 39 cm from the incisors. Biopsied. - Small hiatal hernia. - Normal second portion of the duodenum. Pathology showed distal esophagus fragments of gastric vessels with chronic inflammation. Intestinal metaplasia not identified. 2D echo reviewed with the patient. Reported trivial MR TR and pulmonary insufficiency. Ursodiol increased to 500 mg twice daily. Previously she was taking ursodiol 300 mg 3 times daily. I also discussed about the new medication Ocaliva if alkaline phosphatase and AMA antibodies does not improve. Patient does not have itching. Patient accompanied with her daughter. Previous the patient was accompanied by the and he was not willing for Ocaliva or MRI or other further testing. Indications, response rate, side effects/adverse event under introduction of Ocaliva discussed. Patient agreed to take Ocaliva. Patient also has varicose vein in the left leg therefore venous duplex of both lower extremities ordered to rule out DVT. PCP can refer to vascular surgeon for evaluation of incompetence valve for further intervention. (2) HCV (hepatitis C virus): Status: Chronic Plan: Patient was told in 2014 in [facility] that she has cleared hepatitis C. HCV quantitative RNA was done and is undetectable Orders: Orders CBC W/Diff, Automated 3 Months B19.20 - Unspecified viral hepatitis C without hepatic coma, K74.3 - Primary biliary cirrhosis Anti-Smooth Muscle ABS 3 Months B19.20 - Unspecified viral hepatitis C without hepatic coma, K74.3 - Primary biliary cirrhosis Anti-Mitochondrial AB 3 Months B19.20 - Unspecified viral hepatitis C without hepatic coma, K74.3 - Primary biliary cirrhosis Comprehensive Metabolic Profil 3 Months B19.20 - Unspecified viral hepatitis C without hepatic coma, K74.3 - Primary biliary cirrhosis CRP 3 Months B19.20 - Unspecified viral hepatitis C without hepatic coma, K74.3 - Primary biliary cirrhosis RAFAEL w/ Reflex Mult Confirm 3 Months B19.20 - Unspecified viral hepatitis C without hepatic coma, K74.3 - Primary biliary cirrhosis Venous Duplex US - Braden Extrem 3 Months B19.20 - Unspecified viral hepatitis C without hepatic coma, K74.3 - Primary biliary cirrhosis Medications: New ursodiol 500 mg PO BID 60 tabs 4RF Discontinued ursodiol Discontinued Reason: Order Changed 300 mg PO TID 90 caps 11RF I have examined the patient and the H&P has been reviewed. There are no clinical changes since date of exam.
--- NOTE | 2024-08-24 09:54 | PRE.ANES_ITS ---
ASA Classification* ASA Classification ASA Classification: 3 Assessment & Plan Anesthesia* Anesthesia Assessment Anesthesia Assessment: Discussed sedation and/or anesthesia options, risks, benefits, and alternatives with patient/parents/legal guardian/POA. Questions invited. The patient/parents/legal guardian/POA seems to understand and agrees to proceed with anesthesia plan. Reviewed the physical assessment, medical history, allergy history and patient home medications list prior to surgery/procedure/anesthetic and documented any changes. Performed airway and anesthesia risk assessments. Anesthesia Type Anesthesia Type: MAC Anesthesia Focused Assessment* Temperature: 98.0 F Pulse Rate: 80 Blood Pressure: 155/60 Respiratory Rate: 18 Pulse Ox: 100 Airway Assessment Mouth opens: >3 cm Mallampati Score: II Focused Labs Anesthesia Preop lab: CBC WBC 4.4 K/mm3 (4.4-11.0) 04/08/24 14:50 RBC 4.25 M/mm3 (4.2-5.4) 04/08/24 14:50 Hgb 12.6 g/dL (12.0-15.0) 04/08/24 14:50 Hct 38.8 % (37-47) 04/08/24 14:50 Plt Count 185 K/mm3 (150-450) 04/08/24 14:50 CHEMISTRY Potassium 3.8 mmol/L (3.5-5.1) 04/08/24 14:50 Sodium 141 mmol/L (136-145) 04/08/24 14:50 BUN 7 mg/dL (7-18) 04/08/24 14:50 Creatinine 0.83 mg/dL (0.55-1.02) 04/08/24 14:50 Glucose 88 mg/dL (74-106) 04/08/24 14:50 COAG PT 14.4 SECONDS (11.7-14.9) 04/08/24 14:50 Pre-Assessment Diagnosis/Proposed Procedure Planned Operative Procedure(s): EGD Anesthesia History Anesthesia History - supervisor wound: Anesthesia History - supervisor wound Hx Hospitalization No 08/22/24 08:36 Any Problems With Anesthesia No 08/22/24 08:36 Cholinesterase deficiency No 08/22/24 08:36 You/Your Family Experience No 08/22/24 08:36 fever (hyperthermia) with Relationship Recent Exposure to Contagious No 08/24/24 09:41 Disease Does patient have nerve No 08/22/24 08:36 stimulator Patient instructed to have device shut off --Does patient have Pacemaker No 08/24/24 09:41 or ICD? When Was Last Pacemaker Check QUESTION #4 FULL TEXT: You/Your Family Experience fever (hyperthermia) with Anesthesia Last Oral Intake Last Oral intake: Last Oral Intake NPO since 23:30 08/24/24 09:41 Meds taken in AM with sips of No 08/24/24 09:41 water? Meds patient instructed to take am of surgery PONV PONV - supervisor wound: PONV - supervisor wound Female Yes 08/22/24 08:36 HX of Motion Sickness No 08/22/24 08:36 HX of N/V After Surgery No 08/22/24 08:36 Non-Smoker No 08/22/24 08:36 Duration of Surgery greater No 08/22/24 08:36 than 60 minutes Number of Risk Factors 1 08/22/24 08:36 PONV Score Low Risk 08/22/24 08:36 Height & Weight Height & Weight: Anesthesia: Height & Weight Height 5 ft 5 in 08/24/24 09:41 Weight: 72 kg 08/24/24 09:41 Body Mass Index (BMI) 26.4 08/24/24 09:41 Respiratory Assessment Respiratory Assessment - supervisor wound: Respiratory Tract Infection Hx - supervisor wound Hx Respiratory Tract Infection No 08/22/24 08:36 STOP Sleep Apnea STOP Sleep Apnea - supervisor wound: STOP Sleep Apnea - supervisor wound Hx Hypertension No 08/22/24 08:36 Hx Sleep Apnea No 08/22/24 08:36 CPAP BIPAP Do you snore loudly (louder No 08/22/24 08:36 than talking or can be heard Do you often feel tired/ No 08/22/24 08:36 fatigued/ sleepy during daytime? Has anyone observed you stop No 08/22/24 08:36 breathing during sleep? STOP Results Negative 08/22/24 08:36 QUESTION #5 FULL TEXT : Do you snore loudly (louder than talking or can be heard through closed doors)? 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 Specify any problems Hx of Preganancy in last 3 No 08/22/24 08:36 Months Nurse Filling Out Transfusion VLEHMAN 08/22/24 08:36 & Questions: Date: 08/22/24 08/22/24 08:36 Time: 08:45 08/22/24 08:36 Patient unable to answer at this time (ie. confused, unrespo /Reproduction History /Reproductive History - supervisor wound: /Reproductive Hx- supervisor wound Hx Now No 08/22/24 08:36 Gestational Age (in weeks): EDC: Hx Hx Para Hx Section SAB PFSH Medical History History of GI bleed History of echocardiogram Wears dentures Wears glasses Cancer Hepatitis Cirrhosis Non-smoker History of blood transfusion Hx of fracture of ankle Upper GI bleed Heart murmur Home Medications ?Medication ?Instructions ?Recorded ?Last Taken ?Type multivitamin 1 tab PO DAILY 07/08/22 Unknown History cholecalciferol (vitamin D3) 50 150 mcg (3 x 50 mcg (2,000 unit)) 09/30/22 Unknown Rx mcg (2,000 unit) capsule PO DAILY #90 caps zinc sulfate 50 mg zinc (220 mg) 50 mg PO DAILY #90 caps 09/30/22 Unknown Rx capsule ursodiol 500 mg tablet 500 mg PO BID #60 tabs 04/08/24 Unknown Rx lactulose 10 gram/15 mL oral 15 ml PO TID #946 mL 08/01/24 Unknown Rx solution Allergy/AdvReac Type Severity Reaction Status Date / Time No Known Allergies Allergy Verified 08/24/24 09:41 Surgical History History of knee surgery History of ankle surgery History of liver biopsy Hx of surgical procedure Hx of left mastectomy Social History Smoking Status: Never smoker Review of Systems (Anesthesia) ROS Narrative System reviewed and no additional complaints, except as documented.
--- NOTE | 2024-08-24 10:37 | OP.CCLET_ITS ---
08/24/2024 Frederic Remy Re : Upper GI endoscopy procedure for Chapis James Dear Jonel This procedure was performed on Saturday, August 24, 2024. My impressions and recommendations are as follows: Impressions : - Small (< 5 mm) esophageal varices. - A single bleeding angiodysplastic lesion in the stomach. Treated with a heater probe. - No gross lesions in the first portion of the duodenum. - No specimens collected. Recommendations : - Discharge patient to home. - Resume previous diet. - Continue present medications. My findings are described in the full procedure note, which is enclosed. If I can be of further assistance, please feel free to contact me at . Sincerely, Sánchez Hartman, 08/24/2024 10:36:50 AM This report has been signed electronically.
--- NOTE | 2024-08-24 10:37 | OP.EGD_ITS ---
Patient Name: Chapis James Procedure Date: 08/24/2024 10:18 AM Date of : 1955 Age: 68 Procedure: Upper GI endoscopy Indications: Cirrhosis with suspected esophageal varices Providers: Sánchez Hartman DO Medicines: Monitored Anesthesia Care Patient Profile: This is a 68 year old female. Refer to note in patient chart for documentation of history and physical. Patient has symptoms. Complications: No immediate complications. Procedure: Pre-Anesthesia Assessment: - Prior to the procedure, a History and Physical was performed, and patient medications and allergies were reviewed. The patient is competent. The risks and benefits of the procedure and the sedation options and risks were discussed with the patient. All questions were answered and informed consent was obtained. Patient identification and proposed procedure were verified by the physician in the pre-procedure area. Mental Status Examination: alert and oriented. Airway Examination: normal oropharyngeal airway and neck mobility. Respiratory Examination: clear to auscultation. CV Examination: normal. Prophylactic Antibiotics: The patient does not require prophylactic antibiotics. Prior Anticoagulants: The patient has taken no anticoagulant or antiplatelet agents except for NSAID medication. ASA Grade Assessment: II - A patient with mild systemic disease. After reviewing the risks and benefits, the patient was deemed in satisfactory condition to undergo the procedure. The anesthesia plan was to use monitored anesthesia care (MAC). Immediately prior to administration of medications, the patient was re-assessed for adequacy to receive sedatives. The heart rate, respiratory rate, oxygen saturations, blood pressure, adequacy of pulmonary ventilation, and response to care were monitored throughout the procedure. The physical status of the patient was re-assessed after the procedure. After obtaining informed consent, the endoscope was passed under direct vision. Throughout the procedure, the patient's blood pressure, pulse, and oxygen saturations were monitored continuously. The gastroscope was introduced through the mouth, and advanced to the second part of duodenum. The upper GI endoscopy was accomplished without difficulty. The patient tolerated the procedure well. Scope In: 10:28:47 AM Scope Out: 10:32:16 AM Total Procedure Duration Time 0 hours 3 minutes 29 seconds Findings: Small (< 5 mm) varices were found in the lower third of the esophagus. They were 5 mm in largest diameter. A single 8 mm angiodysplastic lesion with bleeding was found on the greater curvature of the stomach. Coagulation for hemostasis using heater probe was successful. Estimated blood loss was minimal. No gross lesions were noted in the first portion of the duodenum. Impression: - Small (< 5 mm) esophageal varices. - A single bleeding angiodysplastic lesion in the stomach. Treated with a heater probe. - No gross lesions in the first portion of the duodenum. - No specimens collected. Recommendation: - Discharge patient to home. - Resume previous diet. - Continue present medications. Procedure Code(s): --- Professional --- 36655, Esophagogastroduodenoscopy, flexible, transoral; with control of bleeding, any method CPT copyright 2021 [employer]. All rights reserved. The codes documented in this report are preliminary and upon security systems integrator review may be revised to meet current compliance requirements. Sánchez Hartman DO 08/24/2024 10:36:50 AM This report has been signed electronically. Number of Addenda: 0 Note Initiated On: 08/24/2024 10:18 AM
--- NOTE | 2024-08-24 10:39 | PCM.POST.ANE ---
Anesthesia: Postop Eval I Current Vital Signs Temperature: 97.4 F Pulse Rate: 81 Blood Pressure: 106/51 Respiratory Rate: 16 Pulse Ox: 95 Oxygen Delivery Method: Room Air Assessment Airway patent: Yes Spontaneous unlabored respirations: Yes Mental status: Asleep nausea: No Vomiting: No Anesthesia Complication: No Fluid Hydration Crystalloid volume administer (ml): 30 Total IV fluid infused: 30 Progress Note Anesthesia document: Postop Eval 1 completed: Yes
--- NOTE | 2024-08-24 11:19 | PCM.POSTANE2 ---
Anesthesia Postop Eval I Sum Postop Eval Completion status Anesthesia document: Postop Eval 1 completed: Yes Anesthesia Postop Eval I Summary Anesthesia Postop Eval I Summary: Anesthesia Postop Eval I: Assessment Summary Airway patent Yes 08/24/24 10:40 [email or web address] Spontaneous unlabored Yes 08/24/24 10:40 [email or web address] respirations Mental status Asleep 08/24/24 10:40 [email or web address] nausea No 08/24/24 10:40 [email or web address] Vomiting No 08/24/24 10:40 [email or web address] Anesthesia Postop Eval I: Fluid Summary Crystalloid volume administer 30 08/24/24 10:40 [email or web address] (ml) Colloids volume administered ( ml) Blood Product volume administered (ml) Total IV fluid infused 30 08/24/24 10:40 [email or web address] Anesthesia Postop Eval I: Summary Notes Anesthesia Complication No 08/24/24 10:40 [email or web address] Anesthesia Complication Comment: Post-operative progress note Anesthesia: Postop Eval II Evaluation Mental status: Awake Pain Level: 0 nausea: No Vomiting: No
== END 2024-08-24 11:27 | disposition home or self-care (01) ==
LOC: EN 09:13 → AC 09:14
PROVIDERS: PCP Family Medicine; Referring Provider Family Medicine; Visit Provider Internal Medicine Gastroenterology
PROC: 0DJ08ZZ Inspection of Upper Intestinal Tract, Via Natural or Artificial Opening Endoscopic (ICD-10-PCS; CPT 43235; principal; 2024-08-24 10:10)
DX: K74.3 Primary biliary cirrhosis (principal); I85.00 Esophageal varices without bleeding; B18.2 Chronic viral hepatitis C; K31.811 Angiodysplasia of stomach and duodenum with bleeding
CPT/HCPCS: 43255; A4216; J2405

== ENCOUNTER 2025-02-20 09:12 | Outpatient (CLI) | payer OTHER, SELFPAY ==
[2025-02-20 10:09] LABS: Absolute Lymphocyte Count 1.28 X10^3/uL (0.83-4.51); Absolute Neutrophil Count 2.6 X10^3/uL (2.0-7.7); Basophil# 0.06 X10^3/uL; Basophil% 1.3 % (0-1); Eosinophil# 0.11 X10^3/uL; Eosinophils% 2.4 % (0-5); Hematocrit 40.4 % (37-47); Hemoglobin 13.5 g/dL (12.0-15.0); Lymphocyte # 1.28 X10^3/ul (0.83-4.51); Mean Corp Hgb Conc 33.4 g/dL (32-36); Mean Corpuscular Hgb 30.8 pg (27.0-32.0); Mean Corpuscular Volume 92.2 fL (81-99); Mean Platelet Vol. 10.8 fl (6.2-12.0); Monocyte% 10.9 % (0-10); NRBC Flagged by Analyzer 0 % (0-5); Neutrophil # 2.61 X10^3/uL (2.7-7.7); Neutrophil % 57.2 % (47-70); Platelet Count 148 K/mm3 (150-450); RBC Distribution Width CV 13.2 % (11.6-14.6); Red Blood Count 4.38 M/mm3 (4.2-5.4); White Blood Count 4.6 K/mm3 (4.4-11.0)
[2025-02-20 10:29] LABS: International Normalized Ratio 1.1; Prothrombin Time (Protime)PT. 14.4 SECONDS (11.7-14.9)
[2025-02-20 12:23] LABS: ALB/GLOB Ratio 1.1 RATIO (0.9-2.4); AST(SGOT) 40 U/L (<=31); Alanine Aminotransfer ALT/SGPT 9 U/L (<=34); Albumin, Serum 3.4 g/dL (3.4-4.8); Alkaline Phosphatase 155 U/L (35-104); Anion Gap 10 (5-15); BUN 10 mg/dL (4-19); BUN/Creat Ratio 17.5 RATIO (10-20); Calcium,Total 9.2 mg/dL (7.6-11.0); Carbon Dioxide 22.8 mmol/L (21.0-32.0); Chloride 110 mmol/L (98-108); EST Glomerular Filtration Rate 97 (>60); Globulin 3.2 g/dL (2.2-4.2); Glucose 95 mg/dL (70-99); Potassium 4.1 mmol/L (3.3-5.1); Protein, Total 6.6 g/dL (5.9-8.4); Sodium Level 143 mmol/L (133-145); Total Bilirubin 1.22 mg/dL (0.00-1.30)
[2025-02-21 04:07] LABS: AFP, Tumor Marker 2.7 ng/mL (0.0-9.2)
== END 2025-02-20 23:59 | disposition home or self-care (01) ==
LOC: LAB 09:15
PROVIDERS: PCP Family Medicine; Referring Provider Internal Medicine Gastroenterology; Visit Provider Internal Medicine Gastroenterology
DX: K74.3 Primary biliary cirrhosis (principal)
CPT/HCPCS: 80053; 82105; 85025; 85610

== ENCOUNTER → 2025-03-17 | Outpatient (CLI) | payer SELFPAY, OTHER ==
--- NOTE | 2025-03-17 08:20 | CT_ITS ---
PROCEDURE: ABDOMEN/PELVIS WITH CONTRAST 03/17/2025 REASON FOR EXAM: CIRRHOSIS AND TIPS PROCEDURE TECHNIQUE: ABDOMEN/PELVIS WITH CONTRAST Coronal and Sagittal reconstruction series were provided. CONTRAST: Isovue-300 VOLUME: 100 mL One or more dose reduction techniques were used (e.g., Automated exposure control, adjustment of the mA and/or kV according to patient size, use of iterative reconstruction technique. RADIATION DOSE SUMMARY: CTDlvol: 15.5 mGy DLP: 901.53 mGycm COMPARISON: Prior study dated July 31, 2024. FINDINGS: Lung bases: Lung bases are clear. Liver: The patient is status post tips procedure. The stent is visualized. It is unchanged. Gallbladder: The gallbladder is unremarkable. Spleen: Normal size. Pancreas: Unremarkable Adrenals: Adrenal glands are unremarkable. Kidneys: Normal renal sizes. No hydronephrosis. Minimal fullness of the left kidney. Bladder: Unremarkable Reproductive Organs: Heterogeneous appearance of the uterus. This may represent fibroid change. Possibly thickened endometrium. Clinical correlation recommended. Bowel: Colonic diverticulosis without diverticulitis. Appendix: The appendix is not identified. There is no inflammatory process identified in the right lower quadrant to suggest appendicitis. Lymph nodes: Unremarkable Vasculature: Mild diffuse atherosclerotic calcifications are noted. Peritoneum / Retroperitoneum: Unremarkable Bones: Degenerative changes of the spine. CT/Abdomen/Pelvis WITH Contrast IMPRESSION: Stable examination. Reading Location: [id number]
== END | disposition home or self-care (01) ==
PROVIDERS: PCP Family Medicine; Referring Provider Internal Medicine Gastroenterology; Visit Provider Internal Medicine Gastroenterology
DX: K74.3 Primary biliary cirrhosis (principal); B19.20 Unspecified viral hepatitis C without hepatic coma
CPT/HCPCS: 74177; Q9967

== ENCOUNTER → 2025-08-22 | Outpatient (CLI) | payer OTHER, SELFPAY ==
[2025-08-22 11:24] LABS: Hematocrit 40.8 % (37-47); Hemoglobin 13.5 g/dL (12.0-15.0); Immature Granulocytes Count 0.010 X10^3/uL (0.0-0.0); Mean Corp Hgb Conc 33.1 g/dL (32-36); Mean Corpuscular Volume 92.7 fL (81-99); Mean Platelet Vol. 11.2 fl (6.2-12.0); NRBC Flagged by Analyzer 0 % (0-5); Platelet Count 185 K/mm3 (150-450); RBC Distribution Width CV 13.7 % (11.6-14.6); RBC Distribution Width SD 46.7 fl (35.1-43.9); Red Blood Count 4.40 M/mm3 (4.2-5.4); White Blood Count 4.8 K/mm3 (4.4-11.0)
[2025-08-22 11:33] LABS: Prothrombin Time (Protime)PT. 14.8 SECONDS (11.7-14.9)
[2025-08-22 12:13] LABS: AST(SGOT) 40 U/L (<=31); Alanine Aminotransfer ALT/SGPT 11 U/L (<=34); Albumin, Serum 3.4 g/dL (3.4-4.8); Alkaline Phosphatase 121 U/L (35-104); Anion Gap 10 (5-15); BUN 13 mg/dL (4-19); BUN/Creat Ratio 19.6 RATIO (10-20); CRP 4.94 mg/L (0.0-3.0); Calcium,Total 9.5 mg/dL (7.6-11.0); Carbon Dioxide 24.7 mmol/L (21.0-32.0); Chloride 110 mmol/L (98-108); Globulin 3.0 g/dL (2.2-4.2); Glucose 107 mg/dL (70-99); Potassium 3.8 mmol/L (3.3-5.1)
== END | disposition home or self-care (01) ==
LOC: LAB 10:26
PROVIDERS: PCP Family Medicine; Referring Provider Internal Medicine Gastroenterology; Visit Provider Internal Medicine Gastroenterology
DX: K74.60 Unspecified cirrhosis of liver (principal)
CPT/HCPCS: 36415; 80053; 82105; 85025; 85610; 85652; 86140